=== PATIENT | female | born 1955 | race Caucasian/White ===

== ENCOUNTER → 2017-02-08 | Outpatient (CLI) | payer BC ==
--- NOTE | 2017-02-08 14:35 | MAMMOGRAPHY REPORT ---
BILATERAL DIGITAL SCREENING MAMMOGRAM TOMOSYNTHESIS WITH CAD: 02/08/2017 CLINICAL HISTORY: Routine screening. Patient has no complaints. TECHNIQUE: Breast tomosynthesis in addition to standard 2D mammography was performed. Current study was also evaluated with a Computer Aided Detection (CAD) system. COMPARISON: Comparison is made to exams dated: 01/26/2016 mammogram, 01/23/2015 mammogram, 01/22/2014 m ammogram, 01/21/2013 mammogram, 01/14/2011 mammogram, and 01/13/2010 mammogram - [facility] nt. BREAST COMPOSITION: There are scattered areas of fibroglandular density in both breasts. FINDINGS: No suspicious masses, calcifications, or areas of architectural distortion are noted in e ither breast. There has been no significant interval change compared to prior exams. IMPRESSION: ACR BI-RADS CATEGORY 1: NEGATIVE There is no mammographic evidence of malignancy. A 1 year screening mammogram is recommended. The p atient will receive written notification of the results. Approximately 10% of breast cancers are not detected with mammography. A negative mammographic repor t should not delay biopsy if a clinically suggestive mass is present. Malnea Andrea M.D. /:02/08/2017 11:55:[address]: Sophia Orozco, [facility] letter sent: Normal 1/2 BI-RADS Code: ACR BI-RADS Category 1: Negative
== END | disposition home or self-care (01) ==
LOC: C.MAMM 11:37
PROVIDERS: ATTEND Obstetrics & Gynecology
DX: Z12.31 Encounter for screening mammogram for malignant neoplasm of breast (principal)

== ENCOUNTER → 2017-02-09 | Outpatient (CLI) | payer BC ==
[2017-02-09 10:54] LABS: BASO % 1.5 %; BASO ABS # 0.08 K/uL (0-0.2); COMPLETE YES; EOS % 3.4 %; HEMATOCRIT 40.7 % (37-47); IG% 0.2 %; LYMPH ABS # 1.36 K/uL (1.2-3.4); MEAN CELL VOLUME 93.6 fL (80-100); MEAN CORPUSCULAR HEMOGLOBIN 30.6 pg (25-34); MEAN CORPUSCULAR HGB CONC 32.7 g/dl (32-36); MEAN PLATELET VOLUME 12.6 fL (7.4-10.4); MONO % 6.1 %; NEUT % 62.8 %; PLATELET COUNT 195 K/uL (130-400); RED BLOOD COUNT 4.35 M/uL (4.2-5.4); WHITE BLOOD COUNT 5.23 K/uL (4.8-10.8)
[2017-02-09 11:07] LABS: CALCIUM 8.6 mg/dl (8.5-10.1)
[2017-02-09 11:08] LABS: ALT/SGPT 22 U/L (12-78); AST/SGOT 22 U/L (15-37); BLOOD UREA NITROGEN 20 mg/dl (7-18); BUN/CREATININE RATIO 25.3 (10-20); CARBON DIOXIDE 30 mmol/L (21-32); CHLORIDE 107 mmol/L (98-107); CHOLESTEROL 181 mg/dl (0-200); CREATININE 0.78 mg/dl (0.60-1.20); GLUCOSE 89 mg/dl (70-99); SODIUM 142 mmol/L (136-145); TRIGLYCERIDES 106 mg/dl (0-150); VERY LOW DENSITY LIPOPROT CALC 21 mg/dl
[2017-02-09 11:17] LABS: ALB/GLOB RATIO 0.9 (0.9-2); ALKALINE PHOSPHATASE 94 U/L (45-117); CHOLESTEROL/HDL RATIO 2.9; HDL CHOLESTEROL 63 mg/dl; LDL CHOLESTEROL CALCULATED 97 mg/dl
[2017-02-09 12:07] LABS: LYME DISEASE AB IGG NEG (NEG); LYME DISEASE AB IGM NEG (NEG)
== END | disposition home or self-care (01) ==
LOC: C.LABBC 07:41
PROVIDERS: ATTEND Internal Medicine
DX: Z00.00 Encounter for general adult medical examination without abnormal findings (principal); E03.9 Hypothyroidism, unspecified; E55.9 Vitamin D deficiency, unspecified; K90.0 Celiac disease

== ENCOUNTER → 2018-02-13 | Outpatient (CLI) | payer OTHER ==
--- NOTE | 2018-02-14 15:45 | MAMMOGRAPHY REPORT ---
BILATERAL DIGITAL SCREENING MAMMOGRAM TOMOSYNTHESIS WITH CAD: 02/13/2018 CLINICAL HISTORY: Routine screening. Patient has no complaints. TECHNIQUE: Breast tomosynthesis in addition to standard 2D mammography was performed. Current study was also evaluated with a Computer Aided Detection (CAD) system. COMPARISON: Comparison is made to exams dated: 02/08/2017 mammogram, 01/26/2016 mammogram, 01/23/2015 m ammogram, 01/22/2014 mammogram, 01/21/2013 mammogram, and 01/19/2012 mammogram - [facility] er. BREAST COMPOSITION: There are scattered areas of fibroglandular density in both breasts. FINDINGS: The parenchymal pattern is unchanged. No developing mass, architectural distortion or clus ter of suspicious microcalcifications is seen in either breast. IMPRESSION: ACR BI-RADS CATEGORY 2: BENIGN There is no mammographic evidence of malignancy. A 1 year screening mammogram is recommended. The pa tient will receive written notification of the results. Approximately 10% of breast cancers are not detected with mammography. A negative mammographic report should not delay biopsy if a clinically suggestive mass is present. Ruth Smith M.D. ay/:02/13/2018 15:34:29 Grinding Operator: Sophia Orozco, [facility] letter sent: Normal 1/2 BI-RADS Code: ACR BI-RADS Category 2: Benign
== END | disposition home or self-care (01) ==
LOC: C.MAMM 09:56
PROVIDERS: ATTEND Obstetrics & Gynecology
DX: Z12.31 Encounter for screening mammogram for malignant neoplasm of breast (principal)

== ENCOUNTER → 2018-02-22 | Outpatient (CLI) | payer OTHER ==
[2018-02-22 10:41] LABS: HEMATOCRIT 39.4 % (37-47); HEMOGLOBIN 13.3 g/dL (12.0-16.0); MEAN CELL VOLUME 90.4 fL (80-100); MEAN CORPUSCULAR HEMOGLOBIN 30.5 pg (25-34); MEAN CORPUSCULAR HGB CONC 33.8 g/dl (32-36); MEAN PLATELET VOLUME 12.6 fL (7.4-10.4); PLATELET COUNT 189 K/uL (130-400); RED CELL DISTRIBUTION WIDTH CV 13.4 % (11.5-14.5); RED CELL DISTRIBUTION WIDTH SD 44.1 fL (36.4-46.3)
[2018-02-22 10:52] LABS: ALBUMIN 3.6 gm/dl (3.4-5.0); ALT/SGPT 22 U/L (12-78); AST/SGOT 21 U/L (15-37); BLOOD UREA NITROGEN 15 mg/dl (7-18); CALCIUM 8.5 mg/dl (8.5-10.1); CARBON DIOXIDE 29 mmol/L (21-32); CHOLESTEROL 145 mg/dl (0-200); CREATININE 0.88 mg/dl (0.60-1.20); GLUCOSE 89 mg/dl (70-99); POTASSIUM 3.7 mmol/L (3.5-5.1); SODIUM 142 mmol/L (136-145)
[2018-02-22 11:02] LABS: ALKALINE PHOSPHATASE 90 U/L (45-117); LDL CHOLESTEROL CALCULATED 71 mg/dl; TOTAL PROTEIN 7.4 gm/dl (6.4-8.2)
== END | disposition home or self-care (01) ==
LOC: C.LABBC 08:05
PROVIDERS: ATTEND Internal Medicine
DX: Z00.00 Encounter for general adult medical examination without abnormal findings (principal); Z11.59 Encounter for screening for other viral diseases; E55.9 Vitamin D deficiency, unspecified; E03.9 Hypothyroidism, unspecified; K90.0 Celiac disease; E53.8 Deficiency of other specified B group vitamins

== ENCOUNTER → 2018-05-30 | Outpatient (CLI) | payer OTHER ==
--- NOTE | 2018-05-30 13:22 | DIAGNOSTIC IMAGING REPORT ---
LEFT ARM ULTRASOUND CLINICAL HISTORY: M79.89 Swelling of arm left arm, inner aspect of left antecubital COMPARISON STUDY: None. FINDINGS: Real-time sonographic imaging of the left antecubital fossa was performed with order entry representative images submitted. No masses or fluid collections identified. Slight increased echogenicity within the subcutaneous fat. IMPRESSION: 1. No masses or fluid collection at the left antecubital fossa. 2. Slight increased echogenicity within the subcutaneous fat. This could represent a cellulitis. Electronically signed by: Rancho House M.D. 05/30/2018 1:21 PM Dictated Date/Time: 05/30/2018 1:20 PM
== END | disposition home or self-care (01) ==
LOC: C.ULTRBC 12:48
PROVIDERS: ATTEND Nurse Practitioner Adult Health
DX: M79.89 Other specified soft tissue disorders (principal)